=== PATIENT | female | born 1950 | race Caucasian/White ===

== ENCOUNTER → 2017-08-15 | Outpatient (CLI) | payer OTHER ==
[2014-05-09 21:00] VITALS: BP 128/58
[~2017-08-15] MED LIST: CIPR500T94 PO; FLUC150T PO
--- NOTE | 2017-08-20 10:59 | RAD ---
DATE: 08/15/2017 EXAM: MAMMO JOVANY SCREENING BILATERAL HISTORY: Routine screening COMPARISON: 08/14/2016 This study was interpreted with the benefit of Computerized Aided Detection (CAD). The breast parenchyma shows scattered fibroglandular densities. Breast parenchyma level B. FINDINGS: No new or enlarging breast densities are seen. There is a focal cluster of microcalcifications in the anterior aspect of the left breast at the 12:00 location. There are other scattered benign type calcifications in both breasts. IMPRESSION: Clustered microcalcifications in the left breast. Diagnostic mammograms to include magnification and straight mediolateral views are suggested for optimal characterization. BI-RADS CATEGORY: 0 INCOMPLETE: NEEDS ADDITIONAL IMAGING EVALUATION AND/OR PRIOR MAMMOGRAMS FOR COMPARISON. RECOMMENDED FOLLOW-UP: ADD ADDITIONAL IMAGING PQRS compliance statement: Patient information was entered into a reminder system with a target due date for the next mammogram. Mammography is a sensitive method for finding small breast cancers, but it does not detect them all and is not a substitute for careful clinical examination. A negative mammogram does not negate a clinically suspicious finding and should not result in delay in biopsying a clinically suspicious abnormality. "Our facility is accredited by the [employer] Mammography [employer]."
== END | disposition home or self-care (01) ==
LOC: MAMMO 10:47
PROVIDERS: ATTEND Specialist
DX: Z12.31 Encounter for screening mammogram for malignant neoplasm of breast (principal); R92.0 Mammographic microcalcification found on diagnostic imaging of breast
CPT/HCPCS: 77063; 77067

== ENCOUNTER → 2017-08-24 | Outpatient (CLI) | payer OTHER ==
[2014-05-09 21:00] VITALS: BP 128/58
--- NOTE | 2017-08-24 14:34 | RAD ---
DATE: 08/24/2017 EXAM: DIGITAL DIAGNOSTIC LT HISTORY: Suspicious screening study COMPARISON: 08/15/2017, 08/14/2016, 08/09/2015, 08/07/2014, 08/04/2013 This study was interpreted with the benefit of Computerized Aided Detection (CAD). The breast parenchyma shows scattered fibroglandular densities. Breast parenchyma level B. FINDINGS: Additional views of the left breast were obtained including magnification views. The confirm the presence of a cluster of numerous faint pleomorphic microcalcifications at the 12:00 location. These are best seen on the current CC magnification view. They do not demonstrate layering in the lateral projection. In retrospect the these were present on previous studies dating back to at least 08/04/2013, although better demonstrated currently due to technical factors. Their relative stability favors a benign etiology. Indolent DCIS cannot be entirely excluded. IMPRESSION: Probably benign microcalcifications as described above. Surveillance consisting of follow-up left mammography in 6 months to include a CC magnification view, and bilateral mammography at one year is suggested. BI-RADS CATEGORY: 3 PROBABLY BENIGN FINDING(S)-SHORT INTERVAL FOLLOW-UP SUGGESTED RECOMMENDED FOLLOW-UP: 6M 6 MONTH FOLLOW-UP PQRS compliance statement: Patient information was entered into a reminder system with a target due date for the next mammogram. Mammography is a sensitive method for finding small breast cancers, but it does not detect them all and is not a substitute for careful clinical examination. A negative mammogram does not negate a clinically suspicious finding and should not result in delay in biopsying a clinically suspicious abnormality. "Our facility is accredited by the [employer] Mammography [employer]."
== END | disposition home or self-care (01) ==
LOC: MAMMO 12:41
PROVIDERS: ATTEND Specialist
DX: R92.8 Other abnormal and inconclusive findings on diagnostic imaging of breast (principal)
CPT/HCPCS: 77065

== ENCOUNTER → 2018-01-28 | Outpatient (CLI) | payer OTHER ==
[2014-05-09 21:00] VITALS: BP 128/58
--- NOTE | 2018-01-28 13:37 | RAD ---
DATE: 01/28/2018 EXAM: MAMMO JOVANY DIAG LT HISTORY: Follow-up microcalcifications COMPARISON: 08/24/2017 This study was interpreted with the benefit of Computerized Aided Detection (CAD). The breast parenchyma shows scattered fibroglandular densities. Breast parenchyma level B. FINDINGS: 2-D and 3-D tomosynthesis imaging was performed in CC and MLO projections. A magnification cc view was also obtained. No new or enlarging breast densities are seen. A faint cluster of microcalcifications at the 12:00 location left breast is unchanged. Additional scattered benign type calcifications are noted. No new abnormality is detected. IMPRESSION: Stable left breast microcalcifications. Follow-up bilateral mammography in 6 months to include a left CC magnification view is suggested. BI-RADS CATEGORY: 3 PROBABLY BENIGN FINDING(S)-SHORT INTERVAL FOLLOW-UP SUGGESTED RECOMMENDED FOLLOW-UP: 6M 6 MONTH FOLLOW-UP PQRS compliance statement: Patient information was entered into a reminder system with a target due date for the next mammogram. Mammography is a sensitive method for finding small breast cancers, but it does not detect them all and is not a substitute for careful clinical examination. A negative mammogram does not negate a clinically suspicious finding and should not result in delay in biopsying a clinically suspicious abnormality. "Our facility is accredited by the [employer] Mammography Program."
== END | disposition home or self-care (01) ==
LOC: MAMMO 12:26
PROVIDERS: ATTEND Specialist
DX: R92.8 Other abnormal and inconclusive findings on diagnostic imaging of breast (principal)
CPT/HCPCS: 77065; G0279; 77061

== ENCOUNTER → 2018-07-31 | Outpatient (CLI) | payer OTHER ==
[2014-05-09 21:00] VITALS: BP 128/58
--- NOTE | 2018-07-31 10:27 | RAD ---
DATE: 07/31/2018 EXAM: DIGITAL DIAGNOSTIC BILATERAL HISTORY: 6 month follow-up of microcalcifications COMPARISON: 01/28/2018, 08/24/2017, 08/15/2017, 08/14/2016 This study was interpreted with the benefit of Computerized Aided Detection (CAD). Breast Density: SCATTERED The breast parenchyma shows scattered fibroglandular densities. Breast parenchyma level B. FINDINGS: 2-D and 3-D tomosynthesis imaging was performed in CC and MLO projections. No new or enlarging breast densities are seen. There are benign type calcifications in both breasts. There is a persistent cluster of faint microcalcifications at the 12:00 location the left breast which are unchanged. There is stability suggests a benign etiology. No new abnormality is detected. IMPRESSION: Unchanged probably benign left breast microcalcifications. Follow-up left mammography in 6 months and bilateral mammography in one year is suggested. BI-RADS CATEGORY: 3 PROBABLY BENIGN FINDING(S)-SHORT INTERVAL FOLLOW-UP SUGGESTED RECOMMENDED FOLLOW-UP: 6M 6 MONTH FOLLOW-UP PQRS compliance statement: Patient information was entered into a reminder system with a target due date for the next mammogram. Mammography is a sensitive method for finding small breast cancers, but it does not detect them all and is not a substitute for careful clinical examination. A negative mammogram does not negate a clinically suspicious finding and should not result in delay in biopsying a clinically suspicious abnormality. "Our facility is accredited by the [employer] Mammography [employer]."
== END | disposition home or self-care (01) ==
LOC: MAMMO 09:31
PROVIDERS: ATTEND Specialist
DX: R92.8 Other abnormal and inconclusive findings on diagnostic imaging of breast (principal)
CPT/HCPCS: 77066

== ENCOUNTER → 2019-01-29 | Outpatient (CLI) | payer OTHER ==
[2014-05-09 21:00] VITALS: BP 128/58
--- NOTE | 2019-01-29 14:01 | RAD ---
DATE: 01/29/2019. EXAM: DIGITAL DIAGNOSTIC LEFT BREAST HISTORY: Follow-up left breast calcifications 6 month. COMPARISON: Previous exam from 01/28/2018. This study was interpreted with the benefit of Computerized Aided Detection (CAD). FINDINGS: Breast Density: SCATTERED The breast parenchyma shows scattered fibroglandular densities. Breast parenchyma level B. Cluster of calcifications again seen in the retroareolar left breast. No new findings. IMPRESSION: Stable left breast calcification. BI-RADS CATEGORY: 3 PROBABLE BENIGN FINDING(S-SHORT INTERVAL FOLLOW-UP SUGGESTED RECOMMENDED FOLLOW-UP: 6M 6 MONTH FOLLOW-UP. PQRS compliance statement: Patient information was entered into a reminder system with a target due date for the next mammogram. Mammography is a sensitive method for finding small breast cancers, but it does not detect them all and is not a substitute for careful clinical examination. A negative mammogram does not negate a clinically suspicious finding and should not result in delay in biopsying a clinically suspicious abnormality. "Our facility is accredited by the [employer] Mammography Program."
== END | disposition home or self-care (01) ==
LOC: MAMMO 12:54
PROVIDERS: ATTEND Specialist
DX: R92.1 Mammographic calcification found on diagnostic imaging of breast (principal)
CPT/HCPCS: 77065; G0279; 77061

== ENCOUNTER → 2021-10-03 | Outpatient (CLI) | payer MEDICARE ==
[2014-05-09 21:00] VITALS: BP 128/58
--- NOTE | 2021-10-04 14:20 | RAD ---
XR LUMBAR SPINE 2-3V History: Reason: PT FELL HAVING LOW BACK PAIN. / Spl. Instructions: / History: Technique: 3 views lumbar spine. Comparison: None. Findings: Chronic lower thoracic anterior vertebral body wedging. No acute fracture. No acute fracture. Moderat e degenerative disc changes most prominent L4-5 and L5-S1. Vascular calcifications. Impression: 1. Moderate lumbar spondylosis. Electronically signed by: Rustam Ordaz DO (10/04/2021 2:17 PM) [id number]
== END ==
LOC: RAD 15:55
PROVIDERS: ATTEND Specialist
DX: M47.816 Spondylosis without myelopathy or radiculopathy, lumbar region (principal); M51.37 Other intervertebral disc degeneration, lumbosacral region
CPT/HCPCS: 72100